=== PATIENT | male | born 1960 | race Caucasian/White ===

== ENCOUNTER 2020-10-11 06:39 | Inpatient (IN) ==
[2020-10-11] MEDS ORDERED: MIDAZOLAM 2 MG/2 ML VIAL ONE (06:45)
[2020-10-11] MEDS ORDERED: fentaNYL 100 MCG/2 ML VIAL ONE (06:45)
[2020-10-11] MEDS ORDERED: HEPARIN 5,000 UNIT/1 ML VIAL ONE (06:48)
[2020-10-11] MEDS ORDERED: HEPARIN/NACL 0.9% 2 UNITS/ML 0 UNIT/0 ML BAG IV ONE (06:50)
[2020-10-11] MEDS ORDERED: HEPARIN/NACL 0.9% 2 UNITS/ML 3,000 UNIT/1,500 ML BAG IV ONE (06:50)
[2020-10-11] MEDS ORDERED: NITROGLYCERIN DRIP 50 MG/250 ML BOTTLE IV ONE (06:58)
[2020-10-11] MEDS ORDERED: NITROGLYCERIN DRIP 50 MG/250 ML BOTTLE IV PRN ×2 (07:00→07:17)
[2020-10-11] MEDS ORDERED: ONDANSETRON 4 MG/2 ML VIAL IV PRN (07:12)
[2020-10-11] MEDS ORDERED: ZALEPLON 5 MG CAPSULE PO PRN (07:12)
[2020-10-11] MEDS ORDERED: MORPHINE 4 MG/1 ML VIAL IV PRN (07:12)
[2020-10-11] MEDS ORDERED: FUROSEMIDE 40 MG/4 ML VIAL IV ONE (07:18)
[2020-10-11] MEDS ORDERED: POTASSIUM CHLORIDE 20 MEQ TABLET PO ONE (07:18)
[2020-10-11] MEDS ORDERED: SODIUM CHLORIDE 0.9% 1,000 ML IV SCH (07:30)
[2020-10-11 08:33] LABS: Basophils # 0.1 10*3/uL (0.0-0.2); Basophils % 0.9 % (0.0-0.8); Eosinophils % 0.1 % (0.00-10.9); Hematocrit 44.3 VOL% (42.0-52.0); Hemoglobin 14.9 GM/DL (14.0-18.0); Immature Granulocytes % 0.7 %; Immature Granulocytes Absolute 0.08 #; Lymphocytes # 1.5 10*3/uL (1.4-4.0); Lymphocytes % 13.1 % (21.2-54.2); Mean Corpuscular HGB Conc 33.6 GM/DL (32-36); Mean Platelet Volume 11.2 FL (9.6-12.0); Monocytes % 4.9 % (1.7-12.7); Neutrophils % 80.3 % (38.7-73.9); Platelet Count 272 T/CUMM (130-400); Red Blood Count 5.09 MC/CUMM (3.8-5.5); Red Cell Distribution Width 12.7 % (9.3-17.3); White Blood Count 11.5 T/CUMM (4-12)
[2020-10-11 09:09] LABS: Calcium 8.8 MG/DL (8.5-10.1); Potassium 3.9 MMOL/L (3.5-5.1)
[2020-10-11 09:11] LABS: Risk Ratio 3.55; VLDL CHOLESTEROL 6.8 MG/DL
[2020-10-11] MEDS: ASPIRIN EC 81 MG TABLET PO SCH (09:45)
[2020-10-11] MEDS: carvediloL 3.125 MG TABLET PO SCH ×2 (09:45→20:10)
[2020-10-11] MEDS: HEPARIN DRIP 25,000 UNITS/500 ML PREMIX IV SCH (09:45)
[2020-10-11] MEDS: OLMESARTAN 5 MG TABLET PO SCH (09:45)
[2020-10-11] MEDS: ROSUVASTATIN 20 MG TABLET PO SCH (20:10)
[2020-10-11] MEDS: ASCORBIC ACID 500 MG TABLET PO SCH (20:11)
[2020-10-11] MEDS: ACETAMINOPHEN 325 MG TABLET PO PRN (20:25)
[2020-10-12 03:32] LABS: Basophils # 0.1 10*3/uL (0.0-0.2); Basophils % 0.5 % (0.0-0.8); Eosinophils % 0.3 % (0.00-10.9); Hematocrit 42.7 VOL% (42.0-52.0); Hemoglobin 14.7 GM/DL (14.0-18.0); Immature Granulocytes % 0.4 %; Immature Granulocytes Absolute 0.06 #; Lymphocytes # 2.4 10*3/uL (1.4-4.0); Lymphocytes % 15.4 % (21.2-54.2); Mean Corpuscular HGB Conc 34.4 GM/DL (32-36); Mean Corpuscular Volume 86.1 FL (87-102); Mean Platelet Volume 11.4 FL (9.6-12.0); Monocytes % 12.5 % (1.7-12.7); Neutrophils % 70.9 % (38.7-73.9); Platelet Count 249 T/CUMM (130-400); Red Blood Count 4.96 MC/CUMM (3.8-5.5); Red Cell Distribution Width 13.1 % (9.3-17.3); White Blood Count 15.7 T/CUMM (4-12)
[2020-10-12 03:52] LABS: Calcium 8.5 MG/DL (8.5-10.1); Osmolality,Calculated 275.8 MOS/KG (273-304); Potassium 3.9 MMOL/L (3.5-5.1)
[2020-10-12 04:03] LABS: CKMB % 8.1 %
[2020-10-12] MEDS: ACETAMINOPHEN 325 MG TABLET PO PRN ×2 (04:03→16:36)
[2020-10-12 04:05] LABS: Troponin I 27.7 NG/ML (0.00-0.045)
[2020-10-12] MEDS: HEPARIN DRIP 25,000 UNITS/500 ML PREMIX IV SCH ×3 (04:15→22:49)
[2020-10-12] MEDS ORDERED: SODIUM CHLORIDE 0.9% 1,000 ML IV SCH (08:00)
[2020-10-12] MEDS: ISOSORBIDE MONONITRATE 30 MG TABLET PO SCH (09:00)
[2020-10-12] MEDS: OLMESARTAN 5 MG TABLET PO SCH (09:00)
[2020-10-12] MEDS: ASCORBIC ACID 500 MG TABLET PO SCH ×2 (09:00→21:52)
[2020-10-12] MEDS: RANOLAZINE 500 MG TABLET PO SCH ×2 (09:01→21:52)
[2020-10-12] MEDS: carvediloL 3.125 MG TABLET PO SCH ×2 (09:01→21:52)
[2020-10-12] MEDS: ASPIRIN EC 81 MG TABLET PO SCH (09:01)
[2020-10-12 10:54] LABS: CKMB % 6.2 %; Troponin I 21.2 NG/ML (0.00-0.045)
[2020-10-12 13:05] LABS: CKMB % 6.1 %; Troponin I 18.7 NG/ML (0.00-0.045)
[2020-10-12] MEDS: ROSUVASTATIN 20 MG TABLET PO SCH (21:51)
[2020-10-13 06:22] LABS: Basophils # 0.1 10*3/uL (0.0-0.2); Basophils % 0.6 % (0.0-0.8); Eosinophils # 0.1 10*3/uL (0.0-0.87); Eosinophils % 0.7 % (0.00-10.9); Hematocrit 38.7 VOL% (42.0-52.0); Hemoglobin 13.2 GM/DL (14.0-18.0); Immature Granulocytes % 0.8 %; Immature Granulocytes Absolute 0.09 #; Lymphocytes # 2.7 10*3/uL (1.4-4.0); Lymphocytes % 23.7 % (21.2-54.2); Mean Corpuscular HGB Conc 34.1 GM/DL (32-36); Mean Platelet Volume 11.8 FL (9.6-12.0); Monocytes % 13.7 % (1.7-12.7); Neutrophils % 60.5 % (38.7-73.9); Platelet Count 219 T/CUMM (130-400); White Blood Count 11.2 T/CUMM (4-12)
[2020-10-13 06:39] LABS: CKMB % 2.6 %
[2020-10-13 06:40] LABS: Troponin I 9.47 NG/ML (0.00-0.045)
[2020-10-13 06:41] LABS: Calcium 8.6 MG/DL (8.5-10.1); Osmolality,Calculated 269.1 MOS/KG (273-304)
[2020-10-13] MEDS ORDERED: GLUCAGON 1 MG VIAL IM PRN (07:08)
[2020-10-13] MEDS ORDERED: DEXTROSE 50% 25 GM/50 ML VIAL IV PRN (07:08)
[2020-10-13] MEDS: ACETAMINOPHEN 325 MG TABLET PO PRN (07:26)
[2020-10-13] MEDS ORDERED: FAMOTIDINE 20 MG TABLET PO ONE (08:55)
[2020-10-13] MEDS ORDERED: DIAZEPAM 5 MG TABLET PO ONE (08:55)
[2020-10-13] MEDS: ASCORBIC ACID 500 MG TABLET PO SCH ×2 (09:01→20:23)
[2020-10-13] MEDS: ISOSORBIDE MONONITRATE 30 MG TABLET PO SCH (09:01)
[2020-10-13] MEDS: OLMESARTAN 5 MG TABLET PO SCH (09:01)
[2020-10-13] MEDS: ASPIRIN EC 81 MG TABLET PO SCH (09:02)
[2020-10-13] MEDS: RANOLAZINE 500 MG TABLET PO SCH ×2 (09:02→20:23)
[2020-10-13] MEDS: carvediloL 3.125 MG TABLET PO SCH ×2 (09:02→20:23)
[2020-10-13 09:35] LABS: INR 1.1; PT Patient Result 11.9 SECS (10.5-12.0)
[2020-10-13 09:40] LABS: Partial Thromboplastin Time 51.7 SECS (23.9-33.8)
[2020-10-13] MEDS: HEPARIN DRIP 25,000 UNITS/500 ML PREMIX IV SCH ×2 (09:47→16:54)
[2020-10-13] MEDS ORDERED: MAGNESIUM HYDROXIDE SUSP 30 ML UDCUP PO PRN (12:07)
[2020-10-13] MEDS: ROSUVASTATIN 20 MG TABLET PO SCH (20:22)
[2020-10-14 06:08] LABS: Basophils # 0.1 10*3/uL (0.0-0.2); Basophils % 0.8 % (0.0-0.8); Eosinophils # 0.1 10*3/uL (0.0-0.87); Eosinophils % 1.2 % (0.00-10.9); Hematocrit 41.3 VOL% (42.0-52.0); Hemoglobin 13.9 GM/DL (14.0-18.0); Immature Granulocytes % 0.9 %; Immature Granulocytes Absolute 0.09 #; Lymphocytes # 2.8 10*3/uL (1.4-4.0); Lymphocytes % 29.1 % (21.2-54.2); Mean Corpuscular HGB Conc 33.7 GM/DL (32-36); Mean Corpuscular Volume 88.1 FL (87-102); Mean Platelet Volume 11.9 FL (9.6-12.0); Platelet Count 215 T/CUMM (130-400); Red Blood Count 4.69 MC/CUMM (3.8-5.5); Red Cell Distribution Width 12.8 % (9.3-17.3); White Blood Count 9.7 T/CUMM (4-12)
[2020-10-14 06:22] LABS: Calcium 8.5 MG/DL (8.5-10.1); Potassium 4.2 MMOL/L (3.5-5.1)
[2020-10-14 08:27] LABS: INR 1.1; PT Patient Result 11.9 SECS (10.5-12.0); Partial Thromboplastin Time 49.8 SECS (23.9-33.8)
[2020-10-14] MEDS: ISOSORBIDE MONONITRATE 30 MG TABLET PO SCH (09:12)
[2020-10-14] MEDS: OLMESARTAN 5 MG TABLET PO SCH (09:12)
[2020-10-14] MEDS: RANOLAZINE 500 MG TABLET PO SCH ×2 (09:12→21:41)
[2020-10-14] MEDS: ASPIRIN EC 81 MG TABLET PO SCH (09:12)
[2020-10-14] MEDS: ASCORBIC ACID 500 MG TABLET PO SCH ×2 (09:12→21:41)
[2020-10-14] MEDS: carvediloL 3.125 MG TABLET PO SCH ×2 (09:13→21:41)
[2020-10-14] MEDS ORDERED: DIAZEPAM 5 MG TABLET PO ONE (10:58)
[2020-10-14] MEDS: HEPARIN DRIP 25,000 UNITS/500 ML PREMIX IV SCH (11:28)
[2020-10-14] MEDS: ROSUVASTATIN 20 MG TABLET PO SCH (21:42)
[2020-10-15 05:07] LABS: Basophils # 0.1 10*3/uL (0.0-0.2); Basophils % 0.9 % (0.0-0.8); Eosinophils # 0.1 10*3/uL (0.0-0.87); Eosinophils % 1.4 % (0.00-10.9); Hematocrit 40.4 VOL% (42.0-52.0); Hemoglobin 13.1 GM/DL (14.0-18.0); Immature Granulocytes % 0.9 %; Immature Granulocytes Absolute 0.09 #; Lymphocytes # 2.7 10*3/uL (1.4-4.0); Lymphocytes % 28.7 % (21.2-54.2); Mean Corpuscular HGB Conc 32.4 GM/DL (32-36); Mean Corpuscular Volume 87.8 FL (87-102); Mean Platelet Volume 12.1 FL (9.6-12.0); Monocytes % 13.5 % (1.7-12.7); Neutrophils % 54.6 % (38.7-73.9); Platelet Count 227 T/CUMM (130-400); Red Cell Distribution Width 12.8 % (9.3-17.3); White Blood Count 9.6 T/CUMM (4-12)
[2020-10-15 05:47] LABS: Albumin 3.2 G/DL (3.4-5.0); Bilirubin,Total 1.1 MG/DL (0.2-1.0); Calcium 8.9 MG/DL (8.5-10.1); Osmolality,Calculated 272.8 MOS/KG (273-304); Potassium 4.4 MMOL/L (3.5-5.1); Total Protein 6.1 G/DL (6.4-8.2)
[2020-10-15] MEDS: HEPARIN DRIP 25,000 UNITS/500 ML PREMIX IV SCH ×2 (05:51→23:36)
[2020-10-15 08:00] LABS: INR 1.1; PT Patient Result 12.3 SECS (10.5-12.0); Partial Thromboplastin Time 30.6 SECS (23.9-33.8)
[2020-10-15] MEDS ORDERED: HEPARIN 5,000 UNIT/1 ML VIAL IV ONE (08:20)
[2020-10-15] MEDS: RANOLAZINE 500 MG TABLET PO SCH ×2 (09:17→20:40)
[2020-10-15] MEDS: ISOSORBIDE MONONITRATE 30 MG TABLET PO SCH (09:17)
[2020-10-15] MEDS: carvediloL 3.125 MG TABLET PO SCH ×2 (09:17→21:04)
[2020-10-15] MEDS: ASCORBIC ACID 500 MG TABLET PO SCH ×2 (09:17→20:40)
[2020-10-15] MEDS: ASPIRIN EC 81 MG TABLET PO SCH (09:17)
[2020-10-15] MEDS: OLMESARTAN 5 MG TABLET PO SCH (09:17)
[2020-10-15] MEDS: CHLORHEXIDINE 0.12% ORAL RINSE 60 ML BOTTLE SWISH/SPIT SCH ×2 (09:18→20:41)
[2020-10-15] MEDS: CHLORHEXIDINE 4% SOLN 118 ML BOTTLE TOP SCH ×3 (09:20→20:41)
[2020-10-15 09:53] LABS: ABG Base Excess 2.6 MMOL/L (-2.5-2.5); ABG HCO3 26.6 MMOL/L (20-26); ABG Oxygen Saturation 96.6 % (95-100); ABG PCO2 42.8 MM HG (35-48); ABG PH 7.416 (7.35-7.45); ABG PO2 84.6 MM HG (80-95); ABG TCO2 23.7 MMOL/L (23-27); Allen Test Positive
[2020-10-15] MEDS ORDERED: SODIUM CHLORIDE 0.9% 1,000 ML IV SCH (11:00)
[2020-10-15 14:32] LABS: INR 2.9
[2020-10-15 14:34] LABS: Partial Thromboplastin Time 57.4 SECS (23.9-33.8)
[2020-10-15] MEDS: ROSUVASTATIN 20 MG TABLET PO SCH (20:40)
[2020-10-15 23:41] LABS: PT Patient Result 11.5 SECS (10.5-12.0)
[2020-10-15 23:57] LABS: Partial Thromboplastin Time 50.2 SECS (23.9-33.8)
[2020-10-16] MEDS ORDERED: PAPAVERINE 60 MG/2 ML VIAL ONE ×2 (04:22→19:02)
[2020-10-16] MEDS ORDERED: VANCOMYCIN 1,000 MG VIAL ONE ×2 (04:22→19:03)
[2020-10-16] MEDS ORDERED: VANCOMYCIN 500 MG VIAL ONE ×2 (04:22→19:03)
[2020-10-16] MEDS ORDERED: CEFUROXIME INJ 1,500 MG in SODIUM CHLORIDE 0.9% 100 ML IV ONE (05:00)
[2020-10-16] MEDS ORDERED: NITROGLYCERIN DRIP 50 MG/250 ML BOTTLE IV ONE (05:50)
[2020-10-16] MEDS ORDERED: PHENYLEPHRINE DRIP 20 MG/250 ML PREMIX IV ONE (05:50)
[2020-10-16] MEDS ORDERED: PHENYLEPHRINE DRIP 0 MG/0 ML PREMIX IV ONE (05:50)
[2020-10-16] MEDS ORDERED: HEPARIN/NACL 0.9% 2 UNITS/ML 1,000 UNIT/500 ML BAG IV ONE (05:57)
[2020-10-16] MEDS ORDERED: SEVOFLURANE 1 UNIT/15 MINUTE INH ONE ×2 (05:58→20:51)
[2020-10-16] MEDS ORDERED: AMINOCAPROIC ACID 5,000 MG/20 ML VIAL ONE ×5 (05:58→05:59)
[2020-10-16] MEDS ORDERED: LIDOCAINE 2% 5 ML VIAL ONE ×2 (06:05→09:49)
[2020-10-16] MEDS ORDERED: ETOMIDATE 40 MG/20 ML VIAL IV ONE (06:05)
[2020-10-16] MEDS ORDERED: VECURONIUM 10 MG VIAL IV ONE ×5 (06:05→18:55)
[2020-10-16] MEDS ORDERED: ePHEDrine 50 MG/ML VIAL ONE (06:06)
[2020-10-16] MEDS ORDERED: MIDAZOLAM 10 MG/2 ML VIAL ONE ×3 (06:06→06:07)
[2020-10-16] MEDS ORDERED: SUFentanil 250 MCG/5 ML AMP ONE (06:07)
[2020-10-16] MEDS ORDERED: CALCIUM CHLORIDE 1,000 MG/10 ML VIAL IV ONE (06:12)
[2020-10-16] MEDS ORDERED: MINERAL OIL/PETROLATUM OPH OINT 3.5 GM TUBE ONE (06:13)
[2020-10-16] MEDS ORDERED: DIAZEPAM 5 MG TABLET PO ONE (06:16)
[2020-10-16] MEDS ORDERED: FAMOTIDINE 20 MG TABLET PO ONE (06:18)
[2020-10-16] MEDS ORDERED: SODIUM CHLORIDE 0.9% 250 ML IV ONE ×2 (06:25→20:07)
[2020-10-16] MEDS ORDERED: LACTATED RINGERS 1,000 ML IV ONE (06:25)
[2020-10-16] MEDS ORDERED: SODIUM CHLORIDE 0.9% 1,000 ML IV ONE (06:25)
[2020-10-16] MEDS ORDERED: FUROSEMIDE 20 MG/2 ML VIAL ONE ×2 (07:25→09:50)
[2020-10-16 07:28] LABS: ABG Base Excess 2.5 MMOL/L (-2.5-2.5); ABG HCO3 26.6 MMOL/L (20-26); ABG Oxygen Saturation 99.4 % (95-100); ABG PCO2 42.7 MM HG (35-48); ABG PH 7.415 (7.35-7.45); ABG TCO2 23.9 MMOL/L (23-27); Glucose Heart Surgery 122 MG/DL (74-106); Hematocrit Heart Surgery 39.7 PERCENT (42-52); Hemoglobin Heart Surgery 12.9 G/DL (14.0-18.0); PCO2 Patient Temp Arterial 42.7 MMHG; PH Patient Temp Arterial 7.415; Patient Temperature 37 CELCIUS; Potassium Heart/CVR 4.3 MMOL/L (3.5-5.1); Sodium Heart/CVR 137 MMOL/L (135-145)
[2020-10-16 07:45] LABS: Bilirubin,Urine Negative (Negative); Blood, Urine Negative (Negative); Glucose,Urine (UA) Negative (Negative); Ketones,Urine Negative (Negative); Mucus,Urine Occasional /LPF (Occasional); Nitrite,Urine Negative (Negative); Protein,Urine Negative; RBC,Urine <1 /HPF (0-4); Urine Appearance CLEAR (Clear); Urine Color Straw (Yellow); Urine Specific Gravity 1.005 (1.001-1.035); Urine Urobilinogen < 2.0 EU/DL (0.2-1.0)
[2020-10-16 08:48] LABS: Hematocrit Heart Surgery 30.1 PERCENT (42-52); Hemoglobin Heart Surgery 9.7 G/DL (14.0-18.0); PCO2 Patient Temp Venous 37.9 MM HG; PH Patient Temp Venous 7.463; PO2 Patient Temp Venous 39.5 MM HG; Potassium Heart/CVR 4.9 MMOL/L (3.5-5.1); VBG Base Excess 3.3 MEQ/L (0-4); VBG HCO3 27.1 MEQ/L (24-28); VBG Oxygen Saturation 80.1 %; VBG PCO2 39.8 MMHG (41-51); VBG PH 7.448; VBG PO2 42.4 MMHG (17-40); VBG Total CO2 25.1 MMOL/L
[2020-10-16] MEDS ORDERED: ALBUMIN 5% 25.0 GM/500 ML VIAL IV ONE (09:13)
[2020-10-16] MEDS ORDERED: PHENYLEPHRINE DRIP 40 MG/250 ML PREMIX IV ONE (09:13)
[2020-10-16 09:32] LABS: Hematocrit Heart Surgery 32.1 PERCENT (42-52); Hemoglobin Heart Surgery 10.4 G/DL (14.0-18.0); PCO2 Patient Temp Venous 38.9 MM HG; PH Patient Temp Venous 7.445; PO2 Patient Temp Venous 42.7 MM HG; VBG Base Excess 2.6 MEQ/L (0-4); VBG HCO3 26.4 MEQ/L (24-28); VBG Oxygen Saturation 79.6 %; VBG PCO2 38.9 MMHG (41-51); VBG PH 7.445; VBG PO2 42.7 MMHG (17-40); VBG Total CO2 24.2 MMOL/L
[2020-10-16 09:47] LABS: ABG Base Excess 2.3 MMOL/L (-2.5-2.5); ABG HCO3 26.5 MMOL/L (20-26); ABG Oxygen Saturation 99.9 % (95-100); ABG PCO2 36.9 MM HG (35-48); ABG PH 7.457 (7.35-7.45); ABG TCO2 23.1 MMOL/L (23-27); Glucose Heart Surgery 214 MG/DL (74-106); Hematocrit Heart Surgery 35.5 PERCENT (42-52); Hemoglobin Heart Surgery 11.5 G/DL (14.0-18.0); Ionized Calcium Arterial 1.17 MMOL/L (1.21-1.46); PCO2 Patient Temp Arterial 36.9 MMHG; PH Patient Temp Arterial 7.457; Patient Temperature 37 CELCIUS; Potassium Heart/CVR 4.5 MMOL/L (3.5-5.1); Sodium Heart/CVR 132 MMOL/L (135-145)
[2020-10-16] MEDS ORDERED: methylPREDNISolone SOD SUC 1,000 MG/8 ML VIAL ONE (09:49)
[2020-10-16] MEDS ORDERED: MAGNESIUM SULFATE 5 GM/10 ML VIAL IV ONE (09:49)
[2020-10-16] MEDS ORDERED: MANNITOL 100 GM/500 ML BAG IV ONE (09:49)
[2020-10-16] MEDS ORDERED: ALBUMIN 25% 25 GM/100 ML VIAL IV ONE (09:49)
[2020-10-16] MEDS ORDERED: DEXTROSE 5% KCL 20 MEQ 20 MEQ/1,000 ML BAG IV ONE (09:49)
[2020-10-16] MEDS ORDERED: HEPARIN 10,000 UNIT/10 ML VIAL ONE (09:50)
[2020-10-16] MEDS ORDERED: SODIUM BICARBONATE 50 MEQ/50 ML VIAL IV ONE (09:50)
[2020-10-16] MEDS ORDERED: PROTAMINE SULFATE 250 MG/25 ML VIAL IV ONE (09:50)
[2020-10-16] MEDS ORDERED: POTASSIUM CHLORIDE RIDER 10 MEQ in PREMIX 1 EACH IV PRN (10:13)
[2020-10-16] MEDS ORDERED: ACETAMINOPHEN 650 MG SUPP RECTAL PRN (10:13)
[2020-10-16] MEDS ORDERED: MAGNESIUM SULF RIDER 2 GM/50 ML PREMIX IV PRN (10:13)
[2020-10-16] MEDS ORDERED: ONDANSETRON 4 MG/2 ML VIAL IV PRN (10:13)
[2020-10-16] MEDS ORDERED: PHENYLEPHRINE DRIP 40 MG/250 ML PREMIX IV PRN (10:13)
[2020-10-16] MEDS ORDERED: INSULIN REGULAR 100 UNIT/ML IV ONE (10:13)
[2020-10-16] MEDS ORDERED: MAGNESIUM SULF RIDER 4 GM/100 ML PREMIX IV PRN (10:13)
[2020-10-16] MEDS ORDERED: INSULIN REGULAR DRIP 100 ML IV SCH (10:13)
[2020-10-16] MEDS ORDERED: MIDAZOLAM 10 MG/2 ML VIAL IV PRN (10:13)
[2020-10-16] MEDS ORDERED: SODIUM CHLORIDE 0.45% 1,000 ML IV SCH ×2 (10:13)
[2020-10-16] MEDS ORDERED: DEXTROSE 50% 25 GM/50 ML VIAL IV PRN ×2 (10:13)
[2020-10-16] MEDS ORDERED: INSULIN REGULAR 100 UNIT/ML IV PRN (10:13)
[2020-10-16] MEDS ORDERED: LACTATED RINGERS 250 ML IV PRN (10:13)
[2020-10-16] MEDS ORDERED: MORPHINE 10 MG/1 ML VIAL IV PRN (10:13)
[2020-10-16] MEDS ORDERED: VECURONIUM 10 MG VIAL IV PRN ×2 (10:13)
[2020-10-16] MEDS ORDERED: NITROPRUSSIDE 100 MG in DEXTROSE 5% 250 ML IV PRN (10:13)
[2020-10-16] MEDS ORDERED: CHLORHEXIDINE 4% SOLN 118 ML BOTTLE TOP PRN (10:13)
[2020-10-16] MEDS ORDERED: CALCIUM CHLORIDE 1,000 MG/10 ML SYRINGE IV PRN (10:13)
[2020-10-16] MEDS: HEPARIN DRIP 25,000 UNITS/500 ML PREMIX IV SCH (10:58)
[2020-10-16] MEDS: ASPIRIN EC 81 MG TABLET PO SCH (10:59)
[2020-10-16] MEDS: OLMESARTAN 5 MG TABLET PO SCH (10:59)
[2020-10-16 11:02] LABS: ABG Base Excess 2.7 MMOL/L (-2.5-2.5); ABG HCO3 26.8 MMOL/L (20-26); ABG PCO2 41.5 MM HG (35-48); ABG PH 7.427 (7.35-7.45); ABG PO2 80.9 MM HG (80-95); ABG TCO2 24.1 MMOL/L (23-27); Glucose Heart Surgery 176 MG/DL (74-106); Hematocrit Heart Surgery 37.9 PERCENT (42-52); Hemoglobin Heart Surgery 12.3 G/DL (14.0-18.0); Potassium Heart/CVR 3.9 MMOL/L (3.5-5.1)
[2020-10-16 11:03] LABS: Basophils # 0.1 10*3/uL (0.0-0.2); Basophils % 0.6 % (0.0-0.8); Eosinophils # 0.1 10*3/uL (0.0-0.87); Eosinophils % 0.5 % (0.00-10.9); Hematocrit 37.7 VOL% (42.0-52.0); Hemoglobin 12.4 GM/DL (14.0-18.0); Immature Granulocytes % 1.2 %; Immature Granulocytes Absolute 0.14 #; Lymphocytes # 1.3 10*3/uL (1.4-4.0); Lymphocytes % 10.4 % (21.2-54.2); Mean Corpuscular HGB Conc 32.9 GM/DL (32-36); Mean Corpuscular Volume 88.1 FL (87-102); Mean Platelet Volume 11.5 FL (9.6-12.0); Monocytes % 7.3 % (1.7-12.7); Platelet Count 208 T/CUMM (130-400); Red Blood Count 4.28 MC/CUMM (3.8-5.5)
[2020-10-16] MEDS: carvediloL 3.125 MG TABLET PO SCH (11:03)
[2020-10-16] MEDS: ISOSORBIDE MONONITRATE 30 MG TABLET PO SCH (11:04)
[2020-10-16] MEDS: ASCORBIC ACID 500 MG TABLET PO SCH (11:04)
[2020-10-16] MEDS: RANOLAZINE 500 MG TABLET PO SCH (11:04)
[2020-10-16] MEDS: CHLORHEXIDINE 0.12% ORAL RINSE 60 ML BOTTLE SWISH/SPIT SCH (11:04)
[2020-10-16 11:17] LABS: INR 1.2; PT Patient Result 12.7 SECS (10.5-12.0); Partial Thromboplastin Time 29.8 SECS (23.9-33.8)
[2020-10-16 11:27] LABS: Albumin 3.4 G/DL (3.4-5.0); Bilirubin,Total 0.7 MG/DL (0.2-1.0); Calcium 8.7 MG/DL (8.5-10.1); Osmolality,Calculated 275.8 MOS/KG (273-304); Total Protein 6.5 G/DL (6.4-8.2)
[2020-10-16 11:33] LABS: CKMB % 3.4 %
[2020-10-16 11:36] LABS: Troponin I 3.28 NG/ML (0.00-0.045)
[2020-10-16] MEDS: ALBUMIN 5% 12.5 GM/250 ML VIAL IV PRN ×3 (12:14→16:26)
[2020-10-16 12:21] LABS: ABG Base Excess 2.3 MMOL/L (-2.5-2.5); ABG HCO3 26.4 MMOL/L (20-26); ABG PCO2 35.3 MM HG (35-48); ABG PH 7.469 (7.35-7.45); ABG PO2 85.8 MM HG (80-95); ABG TCO2 22.4 MMOL/L (23-27); Glucose Heart Surgery 185 MG/DL (74-106); Hematocrit Heart Surgery 38.6 PERCENT (42-52); Hemoglobin Heart Surgery 12.6 G/DL (14.0-18.0); Potassium Heart/CVR 3.7 MMOL/L (3.5-5.1)
[2020-10-16] MEDS: POTASSIUM CHLORIDE RIDER 20 MEQ in PREMIX 1 EACH IV PRN (12:25)
[2020-10-16] MEDS: LACTATED RINGERS 1,000 ML IV PRN ×3 (12:33→17:15)
[2020-10-16] MEDS: MIDAZOLAM 2 MG/2 ML VIAL IV PRN ×2 (12:41→20:50)
[2020-10-16 14:44] LABS: ABG Base Excess 2.7 MMOL/L (-2.5-2.5); ABG HCO3 26.8 MMOL/L (20-26); ABG Oxygen Saturation 98.5 % (95-100); ABG PH 7.479 (7.35-7.45); ABG TCO2 23.4 MMOL/L (23-27); Glucose Heart Surgery 234 MG/DL (74-106); Hematocrit Heart Surgery 31.8 PERCENT (42-52); Hemoglobin Heart Surgery 10.3 G/DL (14.0-18.0); Potassium Heart/CVR 4.1 MMOL/L (3.5-5.1)
[2020-10-16] MEDS: MORPHINE 4 MG/1 ML VIAL IV PRN ×3 (15:02→22:41)
[2020-10-16 16:32] LABS: ABG Base Excess 2.1 MMOL/L (-2.5-2.5); ABG HCO3 26.3 MMOL/L (20-26); ABG PCO2 33.9 MM HG (35-48); ABG PH 7.482 (7.35-7.45); ABG PO2 96.4 MM HG (80-95); ABG TCO2 23.1 MMOL/L (23-27); Glucose Heart Surgery 232 MG/DL (74-106); Hematocrit Heart Surgery 29.2 PERCENT (42-52); Hemoglobin Heart Surgery 9.4 G/DL (14.0-18.0); Potassium Heart/CVR 3.9 MMOL/L (3.5-5.1)
[2020-10-16] MEDS ORDERED: AMIODARONE 450 MG/9 ML VIAL IV ONE (16:49)
[2020-10-16] MEDS ORDERED: AMIODARONE 150 MG/3 ML VIAL ONE (16:49)
[2020-10-16] MEDS ORDERED: AMIODARONE INJ 150 MG in DEXTROSE 5% 100 ML IV ONE (16:50)
[2020-10-16] MEDS ORDERED: AMIODARONE INJ 450 MG in DEXTROSE 5% 241 ML IV SCH ×2 (17:00→23:00)
[2020-10-16] MEDS ORDERED: PROTAMINE SULFATE 50 MG/5 ML VIAL IV ONE (17:45)
[2020-10-16] MEDS ORDERED: MIDAZOLAM 2 MG/2 ML VIAL ONE (18:57)
[2020-10-16] MEDS ORDERED: FUROSEMIDE 40 MG/4 ML VIAL IV PRN (20:46)
[2020-10-16 20:58] LABS: ABG HCO3 21.8 MMOL/L (20-26); ABG Oxygen Saturation 93.6 % (95-100); ABG PCO2 37.5 MM HG (35-48); ABG PH 7.372 (7.35-7.45); ABG PO2 70.5 MM HG (80-95); ABG TCO2 19.8 MMOL/L (23-27); Glucose Heart Surgery 280 MG/DL (74-106); Hematocrit Heart Surgery 32.5 PERCENT (42-52); Hemoglobin Heart Surgery 10.5 G/DL (14.0-18.0); Potassium Heart/CVR 4.6 MMOL/L (3.5-5.1)
[2020-10-16] MEDS ORDERED: CHLORHEXIDINE 0.12% ORAL RINSE 60 ML BOTTLE SWISH/SPIT SCH (21:00)
[2020-10-16 21:05] LABS: Basophils % 0.1 % (0.0-0.8); Eosinophils % 0.1 % (0.00-10.9); Hemoglobin 10.4 GM/DL (14.0-18.0); Immature Granulocytes % 0.9 %; Immature Granulocytes Absolute 0.16 #; Lymphocytes # 0.6 10*3/uL (1.4-4.0); Lymphocytes % 3.2 % (21.2-54.2); Mean Corpuscular HGB Conc 33.5 GM/DL (32-36); Mean Corpuscular Volume 90.4 FL (87-102); Mean Platelet Volume 12.1 FL (9.6-12.0); Monocytes % 3.8 % (1.7-12.7); Neutrophils % 91.9 % (38.7-73.9); Platelet Count 202 T/CUMM (130-400); Red Blood Count 3.43 MC/CUMM (3.8-5.5); Red Cell Distribution Width 13.3 % (9.3-17.3)
[2020-10-16 21:38] LABS: Calcium 7.9 MG/DL (8.5-10.1); Osmolality,Calculated 285.5 MOS/KG (273-304); Potassium 4.8 MMOL/L (3.5-5.1)
[2020-10-16 21:44] LABS: CKMB % 1.8 %; Troponin I 2.24 NG/ML (0.00-0.045)
[2020-10-16 22:01] LABS: ABG Oxygen Saturation 91.6 % (95-100); ABG PCO2 36.9 MM HG (35-48); ABG PH 7.361 (7.35-7.45); ABG PO2 65.9 MM HG (80-95); Glucose Heart Surgery 295 MG/DL (74-106); Hematocrit Heart Surgery 32.4 PERCENT (42-52); Hemoglobin Heart Surgery 10.5 G/DL (14.0-18.0); Potassium Heart/CVR 4.6 MMOL/L (3.5-5.1)
[2020-10-16 23:01] LABS: ABG Base Excess -3.3 MMOL/L (-2.5-2.5); ABG HCO3 21.7 MMOL/L (20-26); ABG Oxygen Saturation 97.9 % (95-100); ABG PCO2 36.1 MM HG (35-48); ABG PH 7.379 (7.35-7.45); ABG TCO2 19.3 MMOL/L (23-27); Glucose Heart Surgery 298 MG/DL (74-106); Hematocrit Heart Surgery 32.6 PERCENT (42-52); Hemoglobin Heart Surgery 10.6 G/DL (14.0-18.0); Potassium Heart/CVR 4.5 MMOL/L (3.5-5.1)
[2020-10-17 00:05] LABS: Lymphocytes 4 % (20-55); Microcytosis 1+; Platelet Estimate Normal; Segmented Neutrophils 94 % (50-85); Total Cells Counted 100
[2020-10-17 00:06] LABS: Polychromasia Slight
[2020-10-17] MEDS: MORPHINE 4 MG/1 ML VIAL IV PRN ×4 (00:10→05:10)
[2020-10-17 01:16] LABS: ABG Base Excess -0.4 MMOL/L (-2.5-2.5); ABG HCO3 24.1 MMOL/L (20-26); ABG Oxygen Saturation 99.3 % (95-100); ABG PCO2 35.3 MM HG (35-48); ABG TCO2 21.1 MMOL/L (23-27); Glucose Heart Surgery 236 MG/DL (74-106); Hematocrit Heart Surgery 32.6 PERCENT (42-52); Hemoglobin Heart Surgery 10.6 G/DL (14.0-18.0); Potassium Heart/CVR 4.2 MMOL/L (3.5-5.1)
[2020-10-17] MEDS: POTASSIUM CHLORIDE RIDER 20 MEQ in PREMIX 1 EACH IV PRN ×2 (01:34→04:37)
[2020-10-17 02:01] LABS: ABG Base Excess -0.1 MMOL/L (-2.5-2.5); ABG HCO3 24.4 MMOL/L (20-26); ABG Oxygen Saturation 99.5 % (95-100); ABG PCO2 36.1 MM HG (35-48); ABG PH 7.429 (7.35-7.45); ABG TCO2 21.6 MMOL/L (23-27); Glucose Heart Surgery 222 MG/DL (74-106); Hematocrit Heart Surgery 31.9 PERCENT (42-52); Hemoglobin Heart Surgery 10.3 G/DL (14.0-18.0); Potassium Heart/CVR 4.5 MMOL/L (3.5-5.1)
[2020-10-17 03:15] LABS: ABG Base Excess 0.6 MMOL/L (-2.5-2.5); ABG Oxygen Saturation 98.7 % (95-100); ABG PCO2 37.2 MM HG (35-48); ABG TCO2 22.3 MMOL/L (23-27); Glucose Heart Surgery 187 MG/DL (74-106); Hematocrit Heart Surgery 32.6 PERCENT (42-52); Hemoglobin Heart Surgery 10.6 G/DL (14.0-18.0); Potassium Heart/CVR 4.3 MMOL/L (3.5-5.1)
[2020-10-17 04:16] LABS: Basophils % 0.1 % (0.0-0.8); Hemoglobin 10.5 GM/DL (14.0-18.0); Immature Granulocytes % 0.7 %; Immature Granulocytes Absolute 0.13 #; Lymphocytes # 0.8 10*3/uL (1.4-4.0); Lymphocytes % 4.1 % (21.2-54.2); Mean Corpuscular Volume 88.5 FL (87-102); Mean Platelet Volume 11.7 FL (9.6-12.0); Monocytes % 9.8 % (1.7-12.7); Neutrophils % 85.3 % (38.7-73.9); Platelet Count 213 T/CUMM (130-400); Red Blood Count 3.39 MC/CUMM (3.8-5.5); Red Cell Distribution Width 13.2 % (9.3-17.3); White Blood Count 18.1 T/CUMM (4-12)
[2020-10-17 04:20] LABS: ABG Base Excess 1.3 MMOL/L (-2.5-2.5); ABG HCO3 25.6 MMOL/L (20-26); ABG Oxygen Saturation 97.6 % (95-100); ABG PCO2 32.1 MM HG (35-48); ABG PH 7.486 (7.35-7.45); ABG PO2 87.4 MM HG (80-95); ABG TCO2 21.9 MMOL/L (23-27); Glucose Heart Surgery 159 MG/DL (74-106); Potassium Heart/CVR 4.2 MMOL/L (3.5-5.1)
[2020-10-17 04:42] LABS: CKMB % 1.3 %
[2020-10-17 04:46] LABS: Lymphocytes 5 % (20-55); Platelet Estimate Adequate; Segmented Neutrophils 88 % (50-85); Total Cells Counted 100
[2020-10-17 04:47] LABS: Hypochromasia 1+; Microcytosis 1+
[2020-10-17 04:48] LABS: Albumin 3.4 G/DL (3.4-5.0); Bilirubin,Direct 0.31 MG/DL (0.0-0.20); Bilirubin,Total 1.6 MG/DL (0.2-1.0); Calcium 8.3 MG/DL (8.5-10.1); Osmolality,Calculated 279.5 MOS/KG (273-304); Potassium 4.3 MMOL/L (3.5-5.1); Total Protein 5.8 G/DL (6.4-8.2)
[2020-10-17 04:59] LABS: Troponin I 2.69 NG/ML (0.00-0.045)
[2020-10-17 05:57] LABS: ABG Base Excess 1.5 MMOL/L (-2.5-2.5); ABG HCO3 25.8 MMOL/L (20-26); ABG Oxygen Saturation 97.6 % (95-100); ABG PCO2 38.9 MM HG (35-48); ABG PH 7.429 (7.35-7.45); ABG PO2 96.3 MM HG (80-95); ABG TCO2 23.1 MMOL/L (23-27); Glucose Heart Surgery 170 MG/DL (74-106); Hematocrit Heart Surgery 34.3 PERCENT (42-52); Hemoglobin Heart Surgery 11.1 G/DL (14.0-18.0); Potassium Heart/CVR 4.1 MMOL/L (3.5-5.1)
[2020-10-17 06:44] LABS: ABG Base Excess 1.4 MMOL/L (-2.5-2.5); ABG HCO3 25.6 MMOL/L (20-26); ABG Oxygen Saturation 95.4 % (95-100); ABG PCO2 38.9 MM HG (35-48); ABG PH 7.428 (7.35-7.45); ABG PO2 77.1 MM HG (80-95); Glucose Heart Surgery 178 MG/DL (74-106)
[2020-10-17] MEDS ORDERED: KETOROLAC 30 MG/1 ML VIAL IV ONE (06:45)
[2020-10-17] MEDS: KETOROLAC 30 MG/1 ML VIAL IV SCH ×3 (08:16→18:18)
[2020-10-17] MEDS ORDERED: ALUMINUM/MAGNES/SIMETH MAX STR 30 ML UDCUP PO PRN (08:51)
[2020-10-17] MEDS ORDERED: MAGNESIUM SULF RIDER 4 GM/100 ML PREMIX IV PRN (08:51)
[2020-10-17] MEDS ORDERED: ONDANSETRON 4 MG/2 ML VIAL IV PRN (08:51)
[2020-10-17] MEDS ORDERED: MAGNESIUM SULF RIDER 2 GM/50 ML PREMIX IV PRN (08:51)
[2020-10-17] MEDS ORDERED: ACETAMINOPHEN 325 MG TABLET PO PRN (08:51)
[2020-10-17] MEDS ORDERED: POTASSIUM CHLORIDE 20 MEQ TABLET PO PRN (08:51)
[2020-10-17] MEDS ORDERED: GLUCAGON 1 MG VIAL IM PRN (08:51)
[2020-10-17] MEDS ORDERED: DEXTROSE 50% 25 GM/50 ML VIAL IV PRN (08:51)
[2020-10-17] MEDS ORDERED: ZALEPLON 5 MG CAPSULE PO PRN (08:51)
[2020-10-17] MEDS: amLODIPine 5 MG TABLET PO SCH (09:51)
[2020-10-17] MEDS: ASPIRIN EC 325 MG TABLET PO SCH (09:54)
[2020-10-17] MEDS: PANTOPRAZOLE 40 MG TABLET PO SCH (09:54)
[2020-10-17] MEDS: FERROUS SULFATE 325 MG TABLET PO SCH (09:54)
[2020-10-17] MEDS: carvediloL 3.125 MG TABLET PO SCH ×2 (09:54→20:21)
[2020-10-17] MEDS: ASCORBIC ACID 500 MG TABLET PO SCH ×2 (09:54→20:20)
[2020-10-17] MEDS: allopurinoL 300 MG TABLET PO SCH (09:54)
[2020-10-17] MEDS: AMIODARONE 200 MG TABLET PO SCH ×2 (09:54→20:21)
[2020-10-17] MEDS: DOCUSATE SODIUM 100 MG CAPSULE PO SCH (09:54)
[2020-10-17] MEDS: CHLORHEXIDINE 0.12% ORAL RINSE 60 ML BOTTLE SWISH/SPIT SCH ×2 (09:55→20:21)
[2020-10-17] MEDS: SODIUM CHLOR 0.45% KCL 20 MEQ 20 MEQ/1,000 ML BAG IV SCH (09:55)
[2020-10-17] MEDS: INSULIN REGULAR 100 UNIT/ML SUBCUT SCH ×3 (11:54→20:21)
[2020-10-17 12:37] LABS: High Sensitive Troponin I* 2196.2 ng/L (0-78)
[2020-10-17] MEDS: oxyCODONE/ACETAMINOPHEN 5-325 MG TABLET PO PRN ×2 (16:56→21:10)
[2020-10-17] MEDS: ROSUVASTATIN 20 MG TABLET PO SCH (20:20)
[2020-10-18] MEDS: KETOROLAC 30 MG/1 ML VIAL IV SCH ×4 (01:18→20:30)
[2020-10-18] MEDS: oxyCODONE/ACETAMINOPHEN 5-325 MG TABLET PO PRN ×4 (04:39→23:37)
[2020-10-18 04:45] LABS: Basophils % 0.1 % (0.0-0.8); Hematocrit 26.6 VOL% (42.0-52.0); Hemoglobin 8.7 GM/DL (14.0-18.0); Immature Granulocytes % 1.2 %; Immature Granulocytes Absolute 0.24 #; Lymphocytes # 1.6 10*3/uL (1.4-4.0); Lymphocytes % 7.7 % (21.2-54.2); Mean Corpuscular HGB Conc 32.7 GM/DL (32-36); Mean Corpuscular Volume 92.4 FL (87-102); Mean Platelet Volume 12.1 FL (9.6-12.0); Platelet Count 196 T/CUMM (130-400); Red Blood Count 2.88 MC/CUMM (3.8-5.5); Red Cell Distribution Width 13.7 % (9.3-17.3); White Blood Count 20.8 T/CUMM (4-12)
[2020-10-18 04:58] LABS: Lymphocytes 7 % (20-55); Platelet Estimate Adequate; Segmented Neutrophils 85 % (50-85); Total Cells Counted 100
[2020-10-18 04:59] LABS: Hypochromasia 1+; Microcytosis 1+
[2020-10-18 05:12] LABS: Alanine Aminotransferase 35 U/L (16-61); Albumin 3.1 G/DL (3.4-5.0); Alkaline Phosphatase 41 U/L (45-117); Aspartate Amino Transferase 32 U/L (0-37); Bilirubin,Indirect 1.2 MG/DL (0.0-1.0); Blood Urea Nitrogen 27 MG/DL (7-18); Calcium 8.2 MG/DL (8.5-10.1); Carbon Dioxide 27 MMOL/L (21-32); Estimated Glom Filtration Rate 108 ML/MIN; Glucose 124 MG/DL (74-106); Potassium 4.4 MMOL/L (3.5-5.1); Sodium 136 MMOL/L (136-145); Total Protein 5.9 G/DL (6.4-8.2)
[2020-10-18] MEDS ORDERED: FUROSEMIDE 40 MG/4 ML VIAL IV ONE (06:00)
[2020-10-18] MEDS: INSULIN REGULAR 100 UNIT/ML SUBCUT SCH ×4 (07:49→21:58)
[2020-10-18] MEDS: FERROUS SULFATE 325 MG TABLET PO SCH (08:36)
[2020-10-18] MEDS: ASCORBIC ACID 500 MG TABLET PO SCH ×2 (08:36→20:33)
[2020-10-18] MEDS: PANTOPRAZOLE 40 MG TABLET PO SCH (08:36)
[2020-10-18] MEDS: amLODIPine 5 MG TABLET PO SCH (08:37)
[2020-10-18] MEDS: carvediloL 3.125 MG TABLET PO SCH ×2 (08:37→20:33)
[2020-10-18] MEDS: ASPIRIN EC 325 MG TABLET PO SCH (08:37)
[2020-10-18] MEDS: AMIODARONE 200 MG TABLET PO SCH ×2 (08:37→20:33)
[2020-10-18] MEDS: allopurinoL 300 MG TABLET PO SCH (08:37)
[2020-10-18] MEDS: CHLORHEXIDINE 0.12% ORAL RINSE 60 ML BOTTLE SWISH/SPIT SCH ×2 (08:37→20:36)
[2020-10-18] MEDS: DOCUSATE SODIUM 100 MG CAPSULE PO SCH (08:37)
[2020-10-18] MEDS: SODIUM CHLOR 0.45% KCL 20 MEQ 20 MEQ/1,000 ML BAG IV SCH (09:20)
[2020-10-18] MEDS: MAGNESIUM HYDROXIDE SUSP 30 ML UDCUP PO PRN (09:30)
[2020-10-18] MEDS: ROSUVASTATIN 20 MG TABLET PO SCH (20:33)
[2020-10-19] MEDS: KETOROLAC 30 MG/1 ML VIAL IV SCH ×4 (04:20→21:23)
[2020-10-19 05:11] LABS: Basophils % 0.2 % (0.0-0.8); Hemoglobin 7.6 GM/DL (14.0-18.0); Immature Granulocytes % 1.2 %; Immature Granulocytes Absolute 0.22 #; Mean Corpuscular Volume 91.6 FL (87-102); Mean Platelet Volume 12.5 FL (9.6-12.0); Monocytes % 12.2 % (1.7-12.7); Neutrophils % 75.4 % (38.7-73.9); Platelet Count 199 T/CUMM (130-400); Red Blood Count 2.51 MC/CUMM (3.8-5.5); White Blood Count 18.3 T/CUMM (4-12)
[2020-10-19 05:39] LABS: Calcium 8.2 MG/DL (8.5-10.1); Osmolality,Calculated 280.7 MOS/KG (273-304); Potassium 4.4 MMOL/L (3.5-5.1)
[2020-10-19 05:41] LABS: Alanine Aminotransferase 33 U/L (16-61); Albumin 2.8 G/DL (3.4-5.0); Alkaline Phosphatase 41 U/L (45-117); Aspartate Amino Transferase 30 U/L (0-37); Blood Urea Nitrogen 27 MG/DL (7-18); Calcium 8.4 MG/DL (8.5-10.1); Carbon Dioxide 29 MMOL/L (21-32); Estimated Glom Filtration Rate 122 ML/MIN; Glucose 114 MG/DL (74-106); Potassium 4.2 MMOL/L (3.5-5.1); Sodium 136 MMOL/L (136-145)
[2020-10-19] MEDS: INSULIN REGULAR 100 UNIT/ML SUBCUT SCH ×4 (07:27→22:08)
[2020-10-19] MEDS ORDERED: SODIUM CHLORIDE 0.9% 1,000 ML IV PRN (08:00)
[2020-10-19] MEDS ORDERED: FUROSEMIDE 40 MG/4 ML VIAL IV ONE (08:01)
[2020-10-19] MEDS: AMIODARONE 200 MG TABLET PO SCH ×2 (08:33→21:23)
[2020-10-19] MEDS: PANTOPRAZOLE 40 MG TABLET PO SCH (08:33)
[2020-10-19] MEDS: DOCUSATE SODIUM 100 MG CAPSULE PO SCH (08:33)
[2020-10-19] MEDS: FERROUS SULFATE 325 MG TABLET PO SCH (08:33)
[2020-10-19] MEDS: ASPIRIN EC 325 MG TABLET PO SCH (08:33)
[2020-10-19] MEDS: amLODIPine 5 MG TABLET PO SCH (08:33)
[2020-10-19] MEDS: carvediloL 3.125 MG TABLET PO SCH ×2 (08:34→21:23)
[2020-10-19] MEDS: allopurinoL 300 MG TABLET PO SCH (08:34)
[2020-10-19] MEDS: ASCORBIC ACID 500 MG TABLET PO SCH ×2 (08:34→21:24)
[2020-10-19] MEDS: oxyCODONE/ACETAMINOPHEN 5-325 MG TABLET PO PRN ×3 (08:35→18:13)
[2020-10-19] MEDS: CHLORHEXIDINE 0.12% ORAL RINSE 60 ML BOTTLE SWISH/SPIT SCH ×2 (08:37→21:25)
[2020-10-19] MEDS: FUROSEMIDE 40 MG/4 ML VIAL IV SCH (16:06)
[2020-10-19] MEDS: ROSUVASTATIN 20 MG TABLET PO SCH (21:23)
[2020-10-20] MEDS: oxyCODONE/ACETAMINOPHEN 5-325 MG TABLET PO PRN ×3 (01:47→20:19)
[2020-10-20] MEDS: KETOROLAC 30 MG/1 ML VIAL IV SCH ×2 (05:08→09:23)
[2020-10-20 05:52] LABS: Basophils # 0.1 10*3/uL (0.0-0.2); Basophils % 0.5 % (0.0-0.8); Eosinophils # 0.1 10*3/uL (0.0-0.87); Eosinophils % 0.6 % (0.00-10.9); Hematocrit 32.8 VOL% (42.0-52.0); Immature Granulocytes % 1.8 %; Immature Granulocytes Absolute 0.29 #; Mean Corpuscular HGB Conc 33.5 GM/DL (32-36); Mean Corpuscular Volume 88.6 FL (87-102); Mean Platelet Volume 12.2 FL (9.6-12.0); Monocytes % 12.1 % (1.7-12.7); Red Cell Distribution Width 15.9 % (9.3-17.3)
[2020-10-20 05:56] LABS: Platelet Count 298 T/CUMM (130-400)
[2020-10-20 06:07] LABS: Calcium 8.7 MG/DL (8.5-10.1); Osmolality,Calculated 273.1 MOS/KG (273-304); Potassium 3.8 MMOL/L (3.5-5.1)
[2020-10-20] MEDS: INSULIN REGULAR 100 UNIT/ML SUBCUT SCH ×4 (08:15→20:19)
[2020-10-20] MEDS: DOCUSATE SODIUM 100 MG CAPSULE PO SCH (09:12)
[2020-10-20] MEDS: carvediloL 3.125 MG TABLET PO SCH ×2 (09:12→20:19)
[2020-10-20] MEDS: ASPIRIN EC 325 MG TABLET PO SCH (09:12)
[2020-10-20] MEDS: AMIODARONE 200 MG TABLET PO SCH ×2 (09:12→20:19)
[2020-10-20] MEDS: PANTOPRAZOLE 40 MG TABLET PO SCH (09:13)
[2020-10-20] MEDS: amLODIPine 5 MG TABLET PO SCH (09:13)
[2020-10-20] MEDS: allopurinoL 300 MG TABLET PO SCH (09:13)
[2020-10-20] MEDS: ASCORBIC ACID 500 MG TABLET PO SCH ×2 (09:13→20:19)
[2020-10-20] MEDS: FERROUS SULFATE 325 MG TABLET PO SCH (09:13)
[2020-10-20] MEDS: FUROSEMIDE 40 MG/4 ML VIAL IV SCH (09:17)
[2020-10-20] MEDS: CHLORHEXIDINE 0.12% ORAL RINSE 60 ML BOTTLE SWISH/SPIT SCH ×2 (09:34→20:20)
[2020-10-20] MEDS ORDERED: KETOROLAC 30 MG/1 ML VIAL IM ONE (16:00)
[2020-10-20] MEDS ORDERED: KETOROLAC 30 MG/1 ML VIAL IV ONE (16:32)
[2020-10-20] MEDS: ROSUVASTATIN 20 MG TABLET PO SCH (20:19)
[2020-10-21] MEDS: oxyCODONE/ACETAMINOPHEN 5-325 MG TABLET PO PRN ×5 (03:31→22:09)
[2020-10-21 05:40] LABS: Basophils # 0.1 10*3/uL (0.0-0.2); Basophils % 0.8 % (0.0-0.8); Eosinophils # 0.2 10*3/uL (0.0-0.87); Eosinophils % 1.5 % (0.00-10.9); Hematocrit 32.5 VOL% (42.0-52.0); Hemoglobin 10.9 GM/DL (14.0-18.0); Immature Granulocytes % 2.7 %; Immature Granulocytes Absolute 0.35 #; Lymphocytes # 2.3 10*3/uL (1.4-4.0); Lymphocytes % 17.6 % (21.2-54.2); Mean Corpuscular HGB Conc 33.5 GM/DL (32-36); Mean Corpuscular Volume 88.1 FL (87-102); Mean Platelet Volume 11.7 FL (9.6-12.0); Monocytes % 14.7 % (1.7-12.7); Neutrophils % 62.7 % (38.7-73.9); Platelet Count 316 T/CUMM (130-400); Red Blood Count 3.69 MC/CUMM (3.8-5.5); Red Cell Distribution Width 15.2 % (9.3-17.3); White Blood Count 13.1 T/CUMM (4-12)
[2020-10-21 06:00] LABS: Calcium 8.6 MG/DL (8.5-10.1); Osmolality,Calculated 276.8 MOS/KG (273-304); Potassium 4.5 MMOL/L (3.5-5.1)
[2020-10-21 06:16] LABS: Alanine Aminotransferase 96 U/L (16-61); Albumin 2.7 G/DL (3.4-5.0); Alkaline Phosphatase 59 U/L (45-117); Aspartate Amino Transferase 70 U/L (0-37); Bilirubin,Indirect 0.5 MG/DL (0.0-1.0); Blood Urea Nitrogen 22 MG/DL (7-18); Calcium 8.9 MG/DL (8.5-10.1); Carbon Dioxide 28 MMOL/L (21-32); Estimated Glom Filtration Rate 121 ML/MIN; Glucose 100 MG/DL (74-106); Potassium 3.9 MMOL/L (3.5-5.1); Sodium 136 MMOL/L (136-145); Total Protein 6.7 G/DL (6.4-8.2)
[2020-10-21 07:08] LABS: Band Neutrophils 1 % (0-10); Eosinophils 1 % (0-10); Lymphocytes 17 % (20-55); Segmented Neutrophils 69 % (50-85); Total Cells Counted 100
[2020-10-21 07:09] LABS: Atypical Lymphocytes Few; Platelet Estimate Normal
[2020-10-21] MEDS: INSULIN REGULAR 100 UNIT/ML SUBCUT SCH ×4 (08:27→20:52)
[2020-10-21] MEDS: MAGNESIUM HYDROXIDE SUSP 30 ML UDCUP PO PRN (08:29)
[2020-10-21] MEDS: FERROUS SULFATE 325 MG TABLET PO SCH (08:30)
[2020-10-21] MEDS: DOCUSATE SODIUM 100 MG CAPSULE PO SCH (08:30)
[2020-10-21] MEDS: ASPIRIN EC 325 MG TABLET PO SCH (08:30)
[2020-10-21] MEDS: ASCORBIC ACID 500 MG TABLET PO SCH ×2 (08:30→20:14)
[2020-10-21] MEDS: PANTOPRAZOLE 40 MG TABLET PO SCH (08:30)
[2020-10-21] MEDS: AMIODARONE 200 MG TABLET PO SCH ×2 (08:30→20:14)
[2020-10-21] MEDS: carvediloL 3.125 MG TABLET PO SCH ×2 (08:31→20:14)
[2020-10-21] MEDS: amLODIPine 5 MG TABLET PO SCH (08:31)
[2020-10-21] MEDS: allopurinoL 300 MG TABLET PO SCH (08:31)
[2020-10-21] MEDS: CHLORHEXIDINE 0.12% ORAL RINSE 60 ML BOTTLE SWISH/SPIT SCH ×2 (08:32→20:14)
[2020-10-21] MEDS ORDERED: FUROSEMIDE 40 MG/4 ML VIAL IV SCH (09:00)
[2020-10-21] MEDS: FUROSEMIDE 40 MG TABLET PO SCH (09:56)
[2020-10-21] MEDS ORDERED: carvediloL 3.125 MG TABLET PO ONE (11:29)
[2020-10-21] MEDS: ROSUVASTATIN 20 MG TABLET PO SCH (20:13)
[2020-10-21] MEDS ORDERED: carvediloL 6.25 MG TABLET PO SCH (21:00)
[2020-10-22] MEDS: oxyCODONE/ACETAMINOPHEN 5-325 MG TABLET PO PRN ×5 (04:26→21:07)
[2020-10-22 06:30] LABS: Basophils # 0.1 10*3/uL (0.0-0.2); Basophils % 0.8 % (0.0-0.8); Eosinophils # 0.2 10*3/uL (0.0-0.87); Eosinophils % 1.5 % (0.00-10.9); Hematocrit 35.6 VOL% (42.0-52.0); Hemoglobin 11.6 GM/DL (14.0-18.0); Immature Granulocytes % 4.3 %; Immature Granulocytes Absolute 0.61 #; Lymphocytes # 2.3 10*3/uL (1.4-4.0); Lymphocytes % 15.9 % (21.2-54.2); Mean Corpuscular HGB Conc 32.6 GM/DL (32-36); Mean Corpuscular Volume 89.9 FL (87-102); Mean Platelet Volume 11.6 FL (9.6-12.0); Monocytes % 12.8 % (1.7-12.7); Neutrophils % 64.7 % (38.7-73.9); Platelet Count 394 T/CUMM (130-400); Red Blood Count 3.96 MC/CUMM (3.8-5.5); Red Cell Distribution Width 14.8 % (9.3-17.3); White Blood Count 14.1 T/CUMM (4-12)
[2020-10-22 06:48] LABS: Calcium 8.9 MG/DL (8.5-10.1); Potassium 4.9 MMOL/L (3.5-5.1)
[2020-10-22 06:54] LABS: Alanine Aminotransferase 102 U/L (16-61); Albumin 2.9 G/DL (3.4-5.0); Alkaline Phosphatase 64 U/L (45-117); Aspartate Amino Transferase 56 U/L (0-37); Blood Urea Nitrogen 16 MG/DL (7-18); Calcium 9.1 MG/DL (8.5-10.1); Carbon Dioxide 28 MMOL/L (21-32); Estimated Glom Filtration Rate 127 ML/MIN; Glucose 103 MG/DL (74-106); Potassium 4.8 MMOL/L (3.5-5.1); Sodium 136 MMOL/L (136-145); Total Protein 7.1 G/DL (6.4-8.2)
[2020-10-22 07:15] LABS: Atypical Lymphocytes Few; Hypochromasia Slight; Lymphocytes 21 % (20-55); Nucleated Red Blood Cells 1 (0-5); Platelet Estimate Normal; Segmented Neutrophils 72 % (50-85); Total Cells Counted 100
[2020-10-22] MEDS: allopurinoL 300 MG TABLET PO SCH (08:29)
[2020-10-22] MEDS: INSULIN REGULAR 100 UNIT/ML SUBCUT SCH ×4 (08:29→21:04)
[2020-10-22] MEDS: ASCORBIC ACID 500 MG TABLET PO SCH ×2 (08:32→21:04)
[2020-10-22] MEDS: ASPIRIN EC 325 MG TABLET PO SCH (08:32)
[2020-10-22] MEDS: DOCUSATE SODIUM 100 MG CAPSULE PO SCH (08:32)
[2020-10-22] MEDS: FUROSEMIDE 40 MG TABLET PO SCH (08:32)
[2020-10-22] MEDS: LOSARTAN 25 MG TABLET PO SCH (08:32)
[2020-10-22] MEDS: carvediloL 3.125 MG TABLET PO SCH ×2 (08:33→21:04)
[2020-10-22] MEDS: AMIODARONE 200 MG TABLET PO SCH ×2 (08:33→21:04)
[2020-10-22] MEDS: PANTOPRAZOLE 40 MG TABLET PO SCH (08:34)
[2020-10-22] MEDS: FERROUS SULFATE 325 MG TABLET PO SCH (08:34)
[2020-10-22] MEDS: CHLORHEXIDINE 0.12% ORAL RINSE 60 ML BOTTLE SWISH/SPIT SCH ×2 (08:35→21:04)
[2020-10-22] MEDS: ROSUVASTATIN 20 MG TABLET PO SCH (21:04)
[2020-10-23] MEDS: oxyCODONE/ACETAMINOPHEN 5-325 MG TABLET PO PRN ×3 (01:06→11:01)
[2020-10-23 05:13] LABS: Basophils # 0.1 10*3/uL (0.0-0.2); Basophils % 0.7 % (0.0-0.8); Eosinophils # 0.2 10*3/uL (0.0-0.87); Eosinophils % 1.5 % (0.00-10.9); Hematocrit 32.5 VOL% (42.0-52.0); Hemoglobin 10.8 GM/DL (14.0-18.0); Immature Granulocytes % 5.1 %; Immature Granulocytes Absolute 0.77 #; Lymphocytes # 2.8 10*3/uL (1.4-4.0); Lymphocytes % 18.2 % (21.2-54.2); Mean Corpuscular HGB Conc 33.2 GM/DL (32-36); Mean Corpuscular Volume 88.6 FL (87-102); Mean Platelet Volume 11.4 FL (9.6-12.0); Monocytes % 12.6 % (1.7-12.7); Neutrophils % 61.9 % (38.7-73.9); Platelet Count 387 T/CUMM (130-400); Red Blood Count 3.67 MC/CUMM (3.8-5.5); Red Cell Distribution Width 14.8 % (9.3-17.3); White Blood Count 15.1 T/CUMM (4-12)
[2020-10-23 05:31] LABS: Calcium 8.7 MG/DL (8.5-10.1); Osmolality,Calculated 270.1 MOS/KG (273-304); Potassium 4.6 MMOL/L (3.5-5.1)
[2020-10-23 05:51] LABS: Band Neutrophils 1 % (0-10); Eosinophils 1 % (0-10); Lymphocytes 22 % (20-55); Platelet Estimate Adequate; Segmented Neutrophils 70 % (50-85); Total Cells Counted 100
[2020-10-23 05:52] LABS: Atypical Lymphocytes Few; Hypochromasia Slight; Microcytosis Slight
[2020-10-23] MEDS: INSULIN REGULAR 100 UNIT/ML SUBCUT SCH (07:52)
[2020-10-23 08:11] VITALS: BP 160/78
[2020-10-23] MEDS: LOSARTAN 25 MG TABLET PO SCH (08:50)
[2020-10-23] MEDS: DOCUSATE SODIUM 100 MG CAPSULE PO SCH (08:50)
[2020-10-23] MEDS: ASPIRIN EC 325 MG TABLET PO SCH (08:50)
[2020-10-23] MEDS: PANTOPRAZOLE 40 MG TABLET PO SCH (08:51)
[2020-10-23] MEDS: ASCORBIC ACID 500 MG TABLET PO SCH (08:51)
[2020-10-23] MEDS: carvediloL 3.125 MG TABLET PO SCH (08:51)
[2020-10-23] MEDS: AMIODARONE 200 MG TABLET PO SCH (08:51)
[2020-10-23] MEDS: FERROUS SULFATE 325 MG TABLET PO SCH (08:51)
[2020-10-23] MEDS: CHLORHEXIDINE 0.12% ORAL RINSE 60 ML BOTTLE SWISH/SPIT SCH (08:51)
[2020-10-23] MEDS: allopurinoL 300 MG TABLET PO SCH (08:52)
[2020-10-23] MEDS: FUROSEMIDE 40 MG TABLET PO SCH (08:52)
[2020-10-23] MEDS ORDERED: LEVOFLOXACIN 500 MG TABLET PO SCH (09:00)
== END 2020-10-23 12:18 | disposition home health service (06) | DRG 234 ==
LOC: N.ICU 06:40 → N.TELEN 10-12 12:18 → N.CVR 10-16 09:33 → N.TELES 10-17 14:00
PROVIDERS: ADMIT Internal Medicine Cardiovascular Disease